=== PATIENT | male | born 1995 | race Caucasian/White ===

== ENCOUNTER 2017-04-25 12:08 | Inpatient (IN) ==
[2017-04-25] MEDS ORDERED: 0.9 % Sodium Chloride 1,000 ML IVC ONE (13:13)
[2017-04-25] MEDS ORDERED: *HR* HYDROmorphone (PF) 1 MG/ML SYRINGE IVP ONE ×2 (13:13→14:05)
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
[2017-04-25 14:05] LABS: Basophils # 0.1 K/mcL (0.0-0.2); Basophils % 0.4 %; Eosinophils # 0.2 K/mcL (0.0-0.6); Eosinophils % 1.2 %; Hematocrit 44.3 % (37.5-50.1); Hemoglobin 15.1 g/dL (12.9-16.9); Immature Granulocytes % 0.3 % (0-4); Lymphocytes # 1.4 K/mcL (0.6-4.6); Lymphocytes % 9.9 %; Mean Corpuscular HGB Conc 34.1 g/dL (31.6-35.5); Mean Corpuscular Hemoglobin 28.6 pg (28.0-33.3); Mean Corpuscular Volume 83.9 fL (83.0-100.0); Mean Platelet Volume 10.5 fL (9.4-12.4); Monocytes # 1.5 K/mcL (0.0-1.3); Monocytes % 10.8 %; Neutrophils # 10.5 K/mcL (1.6-8.9); Platelet Count 273 K/mcL (140-400); Red Blood Count 5.28 M/mcL (4.19-5.50); Segmented Neutrophils % 77.4 %
[2017-04-25] MEDS ORDERED: Ondansetron 4 MG/2 ML VIAL IVP ONE (14:05)
[2017-04-25] MEDS ORDERED: Vancomycin 1,250 MG in D5% in Water 250 ML IVPB ONE ×3 (14:05→16:00)
[2017-04-25] MEDS ORDERED: Clindamycin 900 MG/50 ML 900 MG/50 ML IV.SOLN IVPB ONE (14:06)
[2017-04-25 14:17] LABS: BUN/Creatinine Ratio 11 (6-26); Blood Urea Nitrogen 12 mg/dL (8-26); Carbon Dioxide 23 mEq/L (19-29); Chloride 103 mEq/L (98-109); Potassium 4.1 mEq/L (3.5-4.5); Sodium 137 mEq/L (136-145); eGFR For African Americans > 60 (> 60)
[2017-04-25 14:18] LABS: C-Reactive Protein 55 mg/L (Less than 5); Calcium 9.5 mg/dL (8.6-10.8); Glucose 84 mg/dL (70-99); Osmolality,Calculated 283 (280-300); eGFR For Non-African Americans > 60 (> 60)
[2017-04-25] MEDS ORDERED: Ondansetron 4 MG/2 ML VIAL IVP PRN (17:51)
[2017-04-25] MEDS ORDERED: Naloxone 0.4 MG/ML INJ IVP PRN (17:51)
[2017-04-25] MEDS ORDERED: *HR* Morphine 2 MG/ML SYRINGE IVP PRN ×2 (17:51→20:00)
[2017-04-25] MEDS ORDERED: Acetaminophen 325 MG TABLET PO PRN (17:51)
[2017-04-25] MEDS: 0.9 % Sodium Chloride 1,000 ML IVC SCH ×3 (18:48→21:05)
[2017-04-25] MEDS ORDERED: Vancomycin 1,250 MG in D5% in Water 250 ML IVPB SCH (19:00)
[2017-04-25] MEDS ORDERED: Ketorolac 15 MG/ML VIAL IVP PRN (19:03)
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
[2017-04-25] MEDS ORDERED: 0.9 % Sodium Chloride 1,000 ML ONE (20:57)
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
[2017-04-26] MEDS: Clindamycin 900 MG/50 ML 900 MG/50 ML IV.SOLN IVPB SCH ×4 (00:05→23:30)
[2017-04-26] MEDS: Ketorolac 15 MG/ML VIAL IVP PRN ×3 (00:05→23:27)
[2017-04-26] MEDS: Vancomycin 1,500 MG in D5% in Water 250 ML IVPB SCH ×2 (03:50→16:55)
[2017-04-26] MEDS ORDERED: Vancomycin 1,250 MG in D5% in Water 250 ML IVPB SCH (04:00)
[2017-04-26 04:52] LABS: Basophils # 0.1 K/mcL (0.0-0.2); Basophils % 0.5 %; Eosinophils # 0.2 K/mcL (0.0-0.6); Eosinophils % 1.6 %; Hematocrit 33.8 % (37.5-50.1); Immature Granulocytes % 0.7 % (0-4); Lymphocytes # 2.7 K/mcL (0.6-4.6); Mean Corpuscular HGB Conc 33.7 g/dL (31.6-35.5); Mean Corpuscular Hemoglobin 28.9 pg (28.0-33.3); Mean Corpuscular Volume 85.6 fL (83.0-100.0); Monocytes # 1.1 K/mcL (0.0-1.3); Monocytes % 10.6 %; Platelet Count 208 K/mcL (140-400); Red Blood Count 3.95 M/mcL (4.19-5.50); Red Cell Distribution Width 11.9 % (11.5-14.5); Segmented Neutrophils % 60.6 %
[2017-04-26 05:23] LABS: Hemoglobin 11.4 g/dL (12.9-16.9); Neutrophils # 6.2 K/mcL (1.6-8.9)
[2017-04-26] MEDS ORDERED: *HR* Enoxaparin 40 MG/0.4 ML SYRINGE SQ SCH (06:00)
--- NOTE | 2017-04-26 07:52 | Orthopedics Progress Note ---
Date of Encounter: 04/26/17 Time of Encounter: 07:50 - Assessment and Plan (1) Cellulitis Current Visit: Yes Status: Acute I did explain the diagnosis in detail to the patient. He has a right dorsal and proximal forearm cellulitis with developing underlying abscess. My recommendation was a bedside incision and drainage procedure involving the area of drainage. The goal is to facilitate further drainage and when combined with antibiotics, help clear the infection. I did discuss the risks which include injury to veins, arteries, nerves, tendons, ligaments, and bone or persistence of infection requiring an operative debridement. I did explain this to the patient in simple terms and he did wish to proceed. Informed consent was obtained. I did set up a sterile field around the right olecranon area and infiltrated 20 mL of 1% lidocaine with epinephrine. Once the area was numb I did incise 1 cm proximal and 1 cm distal, both longitudinally and dissected through the subcutaneous tissue. There is no grossly purulent material. The I& D site was cultured. There was a small amount of necrotic fat at the wound base which was debrided. After irrigating the wound was packed open and a soft compressive dressing with Ronn wrap was applied. At this point my recommendation is to continue IV antibiotics per the hospitalist as well as elevation and daily local wound care. We will keep patient nothing by mouth after midnight in case he worsens clinically in which case he may require an operative debridement and irrigation. I will follow the patient clinically with you and see him in the morning. Qualifiers: Site of cellulitis: extremity Site of cellulitis of extremity: upper extremity Laterality: right Qualified Code(s): L03.113 - Cellulitis of right upper limb Subjective Interval history: S: Expected pain to the posterior right elbow after I&D. No new complaints. He says it is feeling better this morning compared to last night. O: Currently afebrile and his vital signs are stable The I&D site was evaluated and the packing was pulled. No drainage. Surrounding erythema has dissipated. Moderate swelling to the forearm remains. Less pain with motion of the elbow. The patient can actively flex and extend all digits, extend the thumb, cross the index and long fingers, make an okay sign, and oppose the thumb. The fingertips are all grossly sensate and well-perfused, and the radial artery pulse is 2+. The wound was repacked and an Ronn wrap was applied to the hand and forearm Cultures are pending A: Post I&D of the right proximal dorsal forearm phlegmon; slightly improved over the last 12 hours. P: At this point my recommendation is to continue IV antibiotics per the primary team Elevation Daily dressing changes and packing changes Follow cultures I will follow with you clinically He can eat as there are no plans for operative intervention at this point Objective Vital signs: Vital Signs Temp Pulse Resp BP Pulse Ox 04/26/17 06:44 97.8 F 78 17 120/67 96 04/26/17 03:53 98.4 F 86 15 103/45 97 04/26/17 00:01 100.0 F H 100 15 111/53 96 04/25/17 20:40 99.5 F 62 14 128/73 100 Intake and Output 04/25/17 04/25/17 04/26/17 15:59 23:59 07:59 Intake Total 1000 / 2250 900 / 900 Output Total 0 / 0 Balance 1000 / 2250 900 / 900 Intake: IV Fluids 1000 / 1000 300 / 300 0.9 % Sodium Chloride 1,000 ML 1000 / 1000 @ 3750 mls/hr IVC .Q16M [facility] Rx# :[id number] Cleocin Premix 900 MG/50 ML 900 50 / 50 mg In 50 ml @ 50 mls/hr IVPB Q8HR [facility] Rx#:[id number] Vancocin 1,500 MG In Dextrose 5 250 / 250 % 250 ML @ 166.67 mls/hr IVPB Q12H [facility] Rx#:[id number] Oral 600 / 600 Output: Urine 0 / 0 Other: # Voids 1 # Urine Diapers 2 Weight 89.358 kg Blood Glucose* 78 Patient Weight 04/26/17 23:59 Weight 89.358 kg - Labs CBC & BMP: 04/26/17 04:34 04/26/17 04:34 Labs: Abnormal lab results RBC 3.95 M/mcL (4.19-5.50) L 04/26/17 04:34 Hgb 11.4 g/dL (12.9-16.9) L D 04/26/17 04:34 Hct 33.8 % (37.5-50.1) L 04/26/17 04:34 ESR 28 mm/hr (0-10) H 04/25/17 13:55 Sodium 129 mEq/L (136-145) L D 04/26/17 04:34 BUN 7 mg/dL (8-26) L 04/26/17 04:34 Glucose 372 mg/dL (70-99) H 04/26/17 04:34 Calcium 7.9 mg/dL (8.6-10.8) L D 04/26/17 04:34 Creatine Kinase 333 Units/L (30-200) H 04/25/17 13:55 C-Reactive Protein 55 mg/L (Less than 5) H 04/25/17 13:55 Consult Discharge Plan - Plan Referrals: NONE,PCP [Primary Care Provider] -
[2017-04-26] MEDS: Pantoprazole 40 MG VIAL IVP SCH (08:08)
[2017-04-26 13:22] LABS: BUN/Creatinine Ratio 9 (6-26); Blood Urea Nitrogen 8 mg/dL (8-26); Calcium 8.6 mg/dL (8.6-10.8); Carbon Dioxide 21 mEq/L (19-29); Chloride 108 mEq/L (98-109); Glucose 112 mg/dL (70-99); Osmolality,Calculated 285 (280-300); Potassium 3.7 mEq/L (3.5-4.5); Sodium 138 mEq/L (136-145); eGFR For African Americans > 60 (> 60); eGFR For Non-African Americans > 60 (> 60)
[2017-04-26] MEDS: *HR* Enoxaparin 40 MG/0.4 ML SYRINGE SQ SCH (16:59)
--- NOTE | 2017-04-26 18:37 | Internal Med Progress Note ---
Date of Encounter: 04/26/17 Time of Encounter: 10:00 - Assessment and plan (1) Cellulitis Current Visit: Yes Status: Acute Assessment and plan: -Gen. surgery consult with Post I&D of the right proximal dorsal forearm phlegmon; slightly improved over the last 12 hours. -Will continue IV vancomycin and IV clindamycin until culture results are known. Qualifiers: Site of cellulitis: extremity Site of cellulitis of extremity: upper extremity Laterality: right Qualified Code(s): L03.113 - Cellulitis of right upper limb (2) DVT prophylaxis Current Visit: Yes Status: Acute Assessment and plan: -Continue Lovenox. - Subjective Interval history: Patient with no issues or complaints and no acute events overnight. - Constitutional Vitals: Temp Pulse Resp BP Pulse Ox 97.9 F 80 15 122/67 99 04/26/17 14:54 04/26/17 14:54 04/26/17 14:54 04/26/17 14:54 04/26/17 14:54 General appearance: Present: A&O X 3, answers questions appropriately - Respiratory Respiratory exam: Present: CTAB. Absent: accessory muscle use, rales, rhonchi, wheezes - Cardiovascular Cardiovascular exam: Present: RRR, +S1, +S2. Absent: diastolic murmur, gallop, rubs, systolic murmur Internal Medicine: Result - Labs CBC & Chem 7: 04/26/17 04:34 04/26/17 08:46 Labs: Short CBC 04/26/17 Range/Units 04:34 WBC 10.3 (4.3-11.1) K/mcL Hgb 11.4 L D (12.9-16.9) g/dL Hct 33.8 L (37.5-50.1) % Plt Count 208 (140-400) K/mcL Neutrophils # 6.2 (1.6-8.9) K/mcL BMP 04/26/17 04/26/17 04/26/17 04:34 08:46 08:46 Sodium TNP 136 138 Potassium TNP 3.7 Chloride TNP 108 Carbon Dioxide TNP 21 BUN TNP 8 Creatinine TNP 0.86 Glucose TNP 112 H Calcium TNP 8.6 Consult Discharge Plan - Plan Referrals: NONE,PCP [Primary Care Provider] -
[2017-04-27] MEDS: Vancomycin 1,500 MG in D5% in Water 250 ML IVPB SCH ×2 (04:54→15:43)
[2017-04-27] MEDS: *HR* Enoxaparin 40 MG/0.4 ML SYRINGE SQ SCH (04:59)
[2017-04-27] MEDS: Ketorolac 15 MG/ML VIAL IVP PRN (05:26)
--- NOTE | 2017-04-27 07:21 | Orthopedics Progress Note ---
Date of Encounter: 04/27/17 Time of Encounter: 07:18 - Assessment and Plan (1) Cellulitis Current Visit: Yes Status: Acute I did explain the diagnosis in detail to the patient. He has a right dorsal and proximal forearm cellulitis with developing underlying abscess. My recommendation was a bedside incision and drainage procedure involving the area of drainage. The goal is to facilitate further drainage and when combined with antibiotics, help clear the infection. I did discuss the risks which include injury to veins, arteries, nerves, tendons, ligaments, and bone or persistence of infection requiring an operative debridement. I did explain this to the patient in simple terms and he did wish to proceed. Informed consent was obtained. I did set up a sterile field around the right olecranon area and infiltrated 20 mL of 1% lidocaine with epinephrine. Once the area was numb I did incise 1 cm proximal and 1 cm distal, both longitudinally and dissected through the subcutaneous tissue. There is no grossly purulent material. The I& D site was cultured. There was a small amount of necrotic fat at the wound base which was debrided. After irrigating the wound was packed open and a soft compressive dressing with Ronn wrap was applied. At this point my recommendation is to continue IV antibiotics per the hospitalist as well as elevation and daily local wound care. We will keep patient nothing by mouth after midnight in case he worsens clinically in which case he may require an operative debridement and irrigation. I will follow the patient clinically with you and see him in the morning. Qualifiers: Site of cellulitis: extremity Site of cellulitis of extremity: upper extremity Laterality: right Qualified Code(s): L03.113 - Cellulitis of right upper limb Subjective Interval history: S: Continued improvement to the right elbow from a pain standpoint O: Currently afebrile and his vital signs are stable The I&D site was evaluated and the packing was pulled. No drainage. Resolved erythema. Mild swelling to the forearm remains. Less pain with motion of the elbow. The patient can actively flex and extend all digits, extend the thumb, cross the index and long fingers, make an okay sign, and oppose the thumb. The fingertips are all grossly sensate and well-perfused, and the radial artery pulse is 2+. Wound cultures growing Staphylococcus aureus A: Post I&D of the right proximal dorsal forearm phlegmon; definite improvement P: Anticipate switch to oral antibiotics in the next 24 hours Elevation Daily dressing changes and packing changes Follow final cultures I will follow with you clinically Objective Vital signs: Vital Signs Temp Pulse Resp BP Pulse Ox 04/27/17 03:54 98.0 F 69 15 99/60 97 04/26/17 23:34 98.7 F 71 14 117/64 97 04/26/17 19:20 99.8 F H 94 14 143/63 100 04/26/17 14:54 97.9 F 80 15 122/67 99 04/26/17 10:26 98.6 F 85 17 116/68 97 Intake and Output 04/26/17 04/26/17 04/27/17 15:59 23:59 07:59 Intake Total 170 / 170 780 / 780 300 / 300 Output Total 0 / 0 200 / 200 Balance 170 / 170 780 / 780 100 / 100 Intake: IV Fluids 50 / 50 300 / 300 300 / 300 Cleocin Premix 900 MG/50 ML 900 50 / 50 50 / 50 50 / 50 mg In 50 ml @ 50 mls/hr IVPB Q8HR [facility] Rx#:[id number] Vancocin 1,500 MG In Dextrose 5 250 / 250 250 / 250 % 250 ML @ 166.67 mls/hr IVPB Q12H [facility] Rx#:[id number] Oral 120 / 120 480 / 480 Output: Urine 0 / 0 200 / 200 Other: Meal Lunch Dinner Percent of Meal Consumed 100% 100% # Voids 1 Weight 89.494 kg Blood Glucose* 106 78 Patient Weight 04/27/17 23:59 Weight 89.494 kg - Labs CBC & BMP: 04/26/17 04:34 04/26/17 08:46 Labs: Abnormal lab results RBC 3.95 M/mcL (4.19-5.50) L 04/26/17 04:34 Hgb 11.4 g/dL (12.9-16.9) L D 04/26/17 04:34 Hct 33.8 % (37.5-50.1) L 04/26/17 04:34 ESR 28 mm/hr (0-10) H 04/25/17 13:55 Glucose 112 mg/dL (70-99) H 04/26/17 08:46 Creatine Kinase 333 Units/L (30-200) H 04/25/17 13:55 C-Reactive Protein 55 mg/L (Less than 5) H 04/25/17 13:55 Vancomycin Trough 6.6 mcg/mL (10-20) L 04/27/17 04:08 Consult Discharge Plan - Plan Referrals: NONE,PCP [Primary Care Provider] -
[2017-04-27] MEDS: Clindamycin 900 MG/50 ML 900 MG/50 ML IV.SOLN IVPB SCH ×2 (07:51→15:44)
[2017-04-27] MEDS: Pantoprazole 40 MG VIAL IVP SCH (07:53)
--- NOTE | 2017-04-27 12:50 | Internal Med Progress Note ---
Date of Encounter: 04/27/17 Time of Encounter: 11:00 - Assessment and plan (1) Cellulitis Current Visit: Yes Status: Acute Assessment and plan: Secondary to MRSA Await final cultures Continue Cleocin and Vanco Ortho following, pain control Qualifiers: Site of cellulitis: extremity Site of cellulitis of extremity: upper extremity Laterality: right Qualified Code(s): L03.113 - Cellulitis of right upper limb (2) DVT prophylaxis Current Visit: Yes Status: Acute Assessment and plan: -Continue Lovenox. - Subjective Interval history: Seen and examined at the bedside HE is being managed for RUE cellulitis and abscess, presumptively MRSA He is not septic POD 1 of I/D , ortho is following - Constitutional Vitals: Temp Pulse Resp BP Pulse Ox 98.5 F 75 15 117/70 100 04/27/17 11:37 04/27/17 11:37 04/27/17 11:37 04/27/17 11:37 04/27/17 11:37 General appearance: Present: A&O X 3, pleasant, no acute distress, answers questions appropriately - Head Head exam: Present: atraumatic, normocephalic - Eye Eye exam: Present: PERRL, conjuntiva pink, sclera anicteric Pupils: Present: PERRL - Neck Neck exam general surgery: Present: supple, trachea midline. Absent: lymphadenopathy - Respiratory Respiratory exam: Present: CTAB. Absent: accessory muscle use, rales, rhonchi, wheezes - Cardiovascular Cardiovascular exam: Present: RRR, +S1, +S2. Absent: diastolic murmur, gallop, rubs, systolic murmur - GI/Abdominal GI/Abdominal exam: Present: normal bowel sounds, soft, no peritoneal signs. Absent: distended, tenderness - Extremities Exam Extremities exam: Present: warm, radial pulses palpable and symmetrical. Absent : calf tenderness, cyanotic, pedal edema Additional comments: RUE in radha dressing, clean and dry, neurovascularly intact - Neurological Exam Neurological exam: Present: alert, CN II-XII intact, oriented X3, no focal deficits. Absent: pronater drift, facial droop, speech deficit - Skin Skin exam: Present: dry, intact Internal Medicine: Result - Labs CBC & Chem 7: 04/26/17 04:34 04/26/17 08:46 Labs: BMP 04/26/17 04/26/17 04/26/17 04:34 08:46 08:46 Sodium TNP 136 138 Potassium TNP 3.7 Chloride TNP 108 Carbon Dioxide TNP 21 BUN TNP 8 Creatinine TNP 0.86 Glucose TNP 112 H Calcium TNP 8.6 Consult Discharge Plan - Plan Referrals: NONE,PCP [Primary Care Provider] -
[2017-04-28 03:44] VITALS: BP 98/56
[2017-04-28] MEDS: *HR* Enoxaparin 40 MG/0.4 ML SYRINGE SQ SCH (05:42)
[2017-04-28] MEDS ORDERED: Vancomycin 1,250 MG in D5% in Water 250 ML IVPB SCH (06:00)
--- NOTE | 2017-04-28 08:02 | Orthopedics Progress Note ---
Date of Encounter: 04/28/17 Time of Encounter: 08:01 - Assessment and Plan (1) Cellulitis Current Visit: Yes Status: Acute I did explain the diagnosis in detail to the patient. He has a right dorsal and proximal forearm cellulitis with developing underlying abscess. My recommendation was a bedside incision and drainage procedure involving the area of drainage. The goal is to facilitate further drainage and when combined with antibiotics, help clear the infection. I did discuss the risks which include injury to veins, arteries, nerves, tendons, ligaments, and bone or persistence of infection requiring an operative debridement. I did explain this to the patient in simple terms and he did wish to proceed. Informed consent was obtained. I did set up a sterile field around the right olecranon area and infiltrated 20 mL of 1% lidocaine with epinephrine. Once the area was numb I did incise 1 cm proximal and 1 cm distal, both longitudinally and dissected through the subcutaneous tissue. There is no grossly purulent material. The I& D site was cultured. There was a small amount of necrotic fat at the wound base which was debrided. After irrigating the wound was packed open and a soft compressive dressing with Ronn wrap was applied. At this point my recommendation is to continue IV antibiotics per the hospitalist as well as elevation and daily local wound care. We will keep patient nothing by mouth after midnight in case he worsens clinically in which case he may require an operative debridement and irrigation. I will follow the patient clinically with you and see him in the morning. Qualifiers: Site of cellulitis: extremity Site of cellulitis of extremity: upper extremity Laterality: right Qualified Code(s): L03.113 - Cellulitis of right upper limb Subjective Interval history: S: Continued improvement to the right elbow from a pain standpoint O: Currently afebrile and his vital signs are stable The I&D site was evaluated and the packing was pulled. No drainage. Resolved erythema. Mild swelling to the forearm remains. Less pain with motion of the elbow. The patient can actively flex and extend all digits, extend the thumb, cross the index and long fingers, make an okay sign, and oppose the thumb. The fingertips are all grossly sensate and well-perfused, and the radial artery pulse is 2+. Wound cultures growing MRSA A: Post I&D of the right proximal dorsal forearm phlegmon; definite improvement P: Abx per primary team Elevation Daily dressing changes and packing changes; keep wound covered Follow up in the office in 1 week for a clinical reevaluation or sooner if needed. Objective Vital signs: Vital Signs Temp Pulse Resp BP Pulse Ox 04/28/17 03:42 97.4 F L 74 14 98/56 96 04/28/17 00:40 97.7 F 73 14 109/61 97 04/27/17 18:31 99.2 F 79 14 118/72 100 04/27/17 16:05 98.5 F 81 15 114/63 100 04/27/17 11:37 98.5 F 75 15 117/70 100 Intake and Output 04/27/17 04/28/17 04/28/17 23:59 07:59 15:59 Intake Total 420 / 420 410 / 410 Balance 420 / 420 410 / 410 Intake: IV Fluids 300 / 300 50 / 50 Cleocin Premix 900 MG/50 ML 900 50 / 50 50 / 50 mg In 50 ml @ 50 mls/hr IVPB Q8HR [facility] Rx#:[id number] Vancocin 1,500 MG In Dextrose 5 250 / 250 % 250 ML @ 166.67 mls/hr IVPB Q12H [facility] Rx#:[id number] Oral 120 / 120 360 / 360 Other: Meal Dinner Percent of Meal Consumed 100% # Voids 2 2 Weight 89.358 kg Patient Weight 04/28/17 23:59 Weight 89.358 kg - Labs CBC & BMP: 04/26/17 04:34 04/26/17 08:46 Labs: Abnormal lab results RBC 3.95 M/mcL (4.19-5.50) L 04/26/17 04:34 Hgb 11.4 g/dL (12.9-16.9) L D 04/26/17 04:34 Hct 33.8 % (37.5-50.1) L 04/26/17 04:34 ESR 28 mm/hr (0-10) H 04/25/17 13:55 Glucose 112 mg/dL (70-99) H 04/26/17 08:46 Creatine Kinase 333 Units/L (30-200) H 04/25/17 13:55 C-Reactive Protein 55 mg/L (Less than 5) H 04/25/17 13:55 Vancomycin Trough 7.2 mcg/mL (10-20) L 04/28/17 03:14 Consult Discharge Plan - Plan Referrals: NONE,PCP [Primary Care Provider] -
--- NOTE | 2017-04-28 08:18 | Discharge Summary ---
Date of Encounter: 04/28/17 Time of Encounter: 08:17 - Discharge Diagnosis (1) Cellulitis Priority: Primary Status: Acute Qualifiers: Site of cellulitis: extremity Site of cellulitis of extremity: upper extremity Laterality: right Qualified Code(s): L03.113 - Cellulitis of right upper limb (2) DVT prophylaxis Priority: Secondary Status: Acute - Discharge Medications Prescriptions: Ibuprofen [Motrin] 400 mg PO Q8HR PRN #24 tablet PRN Reason: Pain Clindamycin HCl [Cleocin HCl] 300 mg PO TID #15 cap Home Medications: Clindamycin HCl [Cleocin HCl] 300 mg PO TID #15 cap 04/28/17 [Rx] Ibuprofen [Motrin] 400 mg PO Q8HR PRN #24 tablet 04/28/17 [Rx] Allergies/Adverse Reactions: 3 Allergy/AdvReac Type Severity Reaction Status Date / Time Penicillins [PCN] Allergy Rash Verified 04/25/17 12:33 Date of admission: 04/25/17 17:51 Primary care physician: PCP NONE Consults: 04/25/17 19:01 Consult to Orthopedic Surgery [CONS] Routine Consulting Provider: [facility] Reason for Consult: abcess to R elbow Time Notified: 19:02 Call Completed: Yes Discharging clinician: Joshua Cid Anticipated date of discharge: 04/28/17 - Patient Status Disposition: Home, Self-Care Condition: Good Functional capacity at discharge: independent ambulation Overall status at discharge: patient is back to baseline - Discharge Instructions Instructions: Cellulitis (DC) Follow Up With: NONE,PCP [Primary Care Provider] - (Prefers to find his own primary care physician. Thank you) Shamar Santillan MD [Partnered Physician] - 05/05/17 3:40 pm - Diet and Activity Activity: resume usual activities as tolerated Diet: regular diet Interval History: See below Hospital course: Mr. Truong is a 21 year old male admitted for RUE cellulitis and abscess secondary to MRSA He is s/p Incision and Drainage and was followed by orthopedics throughout He is clinically stable this morning with no new complains He was empirically started on Vancomycin and Clindamycin , his initial leukocytosis has resolved. he was not septic His wound cultures grew MRSA sensitive to Clindamycin and vancomycin among others He is discharged on oral clindamycin to complete 7-10 days of therapy He is educated on wound care and will follow up with Orthopedics out-patient He declines being set up with PCP here and states he is setting up an appointment with his own PCP - Time Spent with Patient Total time spent providing and/or coordinating discharge services: Greater than 30 minutes - Constitutional Vitals: Temp Pulse Resp BP Pulse Ox 97.4 F L 74 14 98/56 96 04/28/17 03:42 04/28/17 03:42 04/28/17 03:42 04/28/17 03:42 04/28/17 03:42 General appearance: Present: A&O X 3, pleasant, no acute distress, answers questions appropriately - Head Head exam: Present: atraumatic, normocephalic - Eye Eye exam: Present: PERRL, conjuntiva pink, sclera anicteric Pupils: Present: PERRL - Neck Neck exam general surgery: Present: supple, trachea midline. Absent: lymphadenopathy - Respiratory Respiratory exam: Present: CTAB. Absent: accessory muscle use, rales, rhonchi, wheezes - Cardiovascular Cardiovascular exam: Present: RRR, +S1, +S2. Absent: diastolic murmur, gallop, rubs, systolic murmur - GI/Abdominal GI/Abdominal exam: Present: normal bowel sounds, soft, no peritoneal signs. Absent: distended, tenderness - Extremities Exam Extremities exam: Present: warm, radial pulses palpable and symmetrical. Absent : calf tenderness, cyanotic, pedal edema Additional comments: RUE in radha wrap, neurovascularly intact - Neurological Exam Neurological exam: Present: alert, CN II-XII intact, oriented X3, no focal deficits. Absent: pronater drift, facial droop, speech deficit - Skin Skin exam: Present: dry, intact
[2017-04-28] MEDS: Clindamycin 900 MG/50 ML 900 MG/50 ML IV.SOLN IVPB SCH ×2 (08:30)
[2017-04-28] MEDS: Vancomycin 1,500 MG in D5% in Water 250 ML IVPB SCH (10:15)
[2017-04-28] MEDS ORDERED: Aminoglycoside Consult 1 EACH MC ONE (10:25)
== END 2017-04-28 10:26 | disposition home or self-care (01) | DRG 581 ==
LOC: EMEROO 12:08 → 3ANU 12:08 → SUATTDRO 17:51 → 3ANU 17:51
PROVIDERS: ADMIT Internal Medicine; ATTEND Internal Medicine